=== PATIENT | female | born 1970 | race African-American/Black ===

== ENCOUNTER 2020-11-09 10:54 | Observation (INO) ==
[2020-11-09] MEDS ORDERED: ASPIRIN 325 MG TABLET PO STA (11:29)
[2020-11-09] MEDS ORDERED: amLODIPine 5 MG TABLET PO STA (12:22)
[2020-11-09] MEDS ORDERED: NITROGLYCERIN SL 0.4 MG TABLET SL STA (12:22)
[2020-11-09 12:51] LABS: Basophils % 0.5 % (0.0-0.8); Eosinophils # 0.1 10*3/uL (0.0-0.87); Hematocrit 37.8 VOL% (35.7-47.0); Hemoglobin 11.5 GM/DL (12.0-16.0); Immature Granulocytes % 0.6 %; Immature Granulocytes Absolute 0.04 #; Lymphocytes # 2.3 10*3/uL (1.4-4.0); Lymphocytes % 34.6 % (21.3-54.2); Mean Corpuscular HGB Conc 30.4 GM/DL (32-36); Mean Corpuscular Volume 83.1 FL (87-102); Mean Platelet Volume 12.1 FL (9.6-12.0); Monocytes % 5.7 % (1.7-12.7); Neutrophils % 56.6 % (38.7-73.9); Platelet Count 204 T/CUMM (130-400); Red Blood Count 4.55 MC/CUMM (3.8-5.5); Red Cell Distribution Width 14.1 % (9.3-17.3); White Blood Count 6.6 T/CUMM (4-12)
[2020-11-09 12:57] LABS: Alanine Aminotransferase 42 U/L (13-56); Albumin 3.6 G/DL (3.4-5.0); Alkaline Phosphatase 94 U/L (45-117); Aspartate Amino Transferase 28 U/L (0-37); Bilirubin,Total < 0.39 MG/DL (0.20-1.00); Blood Urea Nitrogen 16 MG/DL (7-18); Calcium 8.8 MG/DL (8.5-10.1); Carbon Dioxide 33 MMOL/L (21-32); Estimated Glom Filtration Rate 124 ML/MIN; Glucose 207 MG/DL (74-106); Osmolality,Calculated 289.1 MOS/KG (273-304); Potassium 4.1 MMOL/L (3.5-5.1); Sodium 142 MMOL/L (136-145); Total Protein 7.3 G/DL (6.4-8.2)
[2020-11-09] MEDS ORDERED: cloNIDine 0.1 MG TABLET ONE (13:56)
[2020-11-09] MEDS ORDERED: hydrALAZINE 20 MG/1 ML VIAL IV STA (14:42)
[2020-11-09] MEDS ORDERED: ALBUTEROL 2.5 MG/3 ML NEB RESP TX PRN (14:57)
[2020-11-09] MEDS ORDERED: GLUCAGON 1 MG VIAL IM PRN (14:57)
[2020-11-09] MEDS ORDERED: guaiFENesin/DM ER 600-30 MG TABLET PO PRN (14:57)
[2020-11-09] MEDS ORDERED: DEXTROSE 50% 25 GM/50 ML VIAL IV PRN (14:57)
[2020-11-09] MEDS ORDERED: hydrALAZINE 20 MG/1 ML VIAL IV PRN (14:57)
[2020-11-09] MEDS ORDERED: DOCUSATE SODIUM 100 MG CAPSULE PO PRN (14:57)
[2020-11-09] MEDS ORDERED: ACETAMINOPHEN 325 MG TABLET PO PRN (14:57)
[2020-11-09] MEDS ORDERED: ONDANSETRON 4 MG/2 ML VIAL IV PRN (14:57)
[2020-11-09] MEDS: INSULIN REGULAR 100 UNIT/ML SUBCUT SCH ×2 (17:25→22:48)
[2020-11-09] MEDS ORDERED: ENOXAPARIN 40 MG/0.4 ML SYRINGE SUBCUT SCH (18:00)
[2020-11-09 20:47] LABS: Bacteria,Urine Occasional /HPF (Few); Bilirubin,Urine Negative (Negative); Blood, Urine Negative (Negative); Glucose,Urine (UA) 50 mg/dL (Negative); Ketones,Urine Negative (Negative); Mucus,Urine Occasional /LPF (Occasional); Nitrite,Urine Negative (Negative); Protein,Urine Negative; RBC,Urine 5 /HPF (0-4); Squamous Epithelial Cell,Urine Occasional /HPF (0-10); Urine Appearance CLEAR (Clear); Urine Color Yellow (Yellow); Urine Specific Gravity 1.024 (1.001-1.035); Urine Urobilinogen < 2.0 EU/DL (0.2-1.0)
[2020-11-09] MEDS: LOSARTAN 25 MG TABLET PO SCH (22:47)
[2020-11-10 05:46] LABS: Basophils % 0.7 % (0.0-0.8); Eosinophils # 0.2 10*3/uL (0.0-0.87); Eosinophils % 2.9 % (0.00-10.9); Hematocrit 37.3 VOL% (35.7-47.0); Hemoglobin 11.2 GM/DL (12.0-16.0); Immature Granulocytes % 0.3 %; Immature Granulocytes Absolute 0.02 #; Lymphocytes # 2.7 10*3/uL (1.4-4.0); Lymphocytes % 43.3 % (21.3-54.2); Mean Corpuscular Volume 82.9 FL (87-102); Mean Platelet Volume 13.2 FL (9.6-12.0); Monocytes % 7.2 % (1.7-12.7); Neutrophils % 45.6 % (38.7-73.9); Red Cell Distribution Width 14.2 % (9.3-17.3); White Blood Count 6.1 T/CUMM (4-12)
[2020-11-10 05:48] LABS: Platelet Count 104 T/CUMM (130-400)
[2020-11-10 05:59] LABS: Albumin 3.3 G/DL (3.4-5.0); Bilirubin,Total 0.5 MG/DL (0.20-1.00); Calcium 8.8 MG/DL (8.5-10.1); Osmolality,Calculated 285.3 MOS/KG (273-304); Potassium 3.5 MMOL/L (3.5-5.1); Risk Ratio 2.05; Thyroid Stimulating Hormone 2.13 uIU/ml (0.358-3.74); Total Protein 6.8 G/DL (6.4-8.2)
[2020-11-10 06:04] LABS: Hypochromasia Slight; Microcytosis Slight; Platelet Estimate Decreased
[2020-11-10] MEDS: LOSARTAN 25 MG TABLET PO SCH (08:49)
[2020-11-10] MEDS: INSULIN REGULAR 100 UNIT/ML SUBCUT SCH ×2 (08:51→14:10)
[2020-11-10] MEDS ORDERED: amLODIPine 10 MG TABLET PO SCH (09:00)
[2020-11-10] MEDS ORDERED: PANTOPRAZOLE 40 MG TABLET PO SCH (09:00)
[2020-11-10 12:07] VITALS: BP 154/90
[2020-11-11] MEDS ORDERED: hydroCHLOROthiazide 25 MG TABLET PO SCH (09:00)
== END 2020-11-10 14:35 | disposition home or self-care (01) ==
LOC: SUATTDRO → N.ED 10:54 → N.EDINP 10:54 → N.TELEN 19:11
PROVIDERS: ADMIT Internal Medicine; ATTEND Emergency Medicine